=== PATIENT | male | born 1985 | race African-American/Black ===

== ENCOUNTER 2020-11-30 13:50 | Emergency (ER) | payer MEDICAID ==
[~2020-11-30] VITALS: Ht 172.7 cm; Wt 170.0 kg
[2020-11-30] MEDS ORDERED: LIDO700A15 TP (16:19)
[2020-11-30 16:30] VITALS: BP 126/70
== END 2020-11-30 16:33 | disposition home or self-care (01) ==
LOC: ER 13:50
DX: S20.219A Contusion of unspecified front wall of thorax, initial encounter (principal); V89.2XXA Person injured in unspecified motor-vehicle accident, traffic, initial encounter; Y93.9 Activity, unspecified; Y92.410 Unspecified street and highway as the place of occurrence of the external cause
CPT/HCPCS: 99283